=== PATIENT | male | born 1980 | race Caucasian/White ===

== ENCOUNTER 2022-06-29 08:18 | Emergency (ER) | payer BC, SELFPAY ==
--- NOTE | ~2022-06-29 | XR_ITS ---
EXAMINATION: XR abdomen/kub 1V DATE: 06/29/2022 12:40 INDICATION: Renal stone with left-sided flank pain TECHNIQUE: A supine view of the abdomen on 2 radiographs was obtained. COMPARISON: CT dated 06/29/2022 at 9:19 AM. FINDINGS: The obstructing stone in the proximal left ureter is seen projecting slightly cephalad to the left tr ansverse process of L4. The stone appears longer craniocaudal dimension than on the axial images and remeasurement of the stone on prior sagittal and coronal CT imaging yield dimensions of 5 x 4 mm. Nor mal bowel gas pattern. Bone islands at the bilateral femoral heads. IMPRESSION: 1. 5 x 4 mm stone in the proximal left ureter is clearly visible on plain radiographs. Reviewed, dictated and finalized at location A. F SUBSTATION OPERATOR IMPRESSION: 1. 5 x 4 mm stone in the proximal left ureter is clearly visible on plain radio graphs.
--- NOTE | ~2022-06-29 | CT_ITS ---
EXAMINATION: CT abdomen pelvis wo con DATE: 06/29/2022 09:30 INDICATION: Left-sided flank pain TECHNIQUE: Computed tomography (CT) of the abdomen and pelvis was performed without intravenous contr ast. Automated exposure control and iterative reconstruction technique were employed. The dose-length product was 377.53 mGy-cm. COMPARISON: 12/17/2006 FINDINGS: Mild discoid atelectasis in the left lower lobe. Heart size is normal. No pericardial or pleural effu jacy. Liver, gallbladder, spleen, pancreas and bilateral adrenal glands are normal. 1 mm stone at an upper pole calyx of the left kidney. 3 mm obstructing stone at the proximal left ureter with mild lef t hydronephrosis. Right kidney and ureter are normal with no right-sided urolithiasis. Bladder and pr ostate are normal. Bowels including the appendix are normal. No free intraperitoneal gas or fluid. No pathologically enlarged abdominal or pelvic lymphadenopathy. Bone islands at the bilateral femoral h renee. IMPRESSION: 1. Left nephrolithiasis with obstructing 3 mm proximal left ureteral stone with mild left hydronephro sis. Reviewed, dictated and finalized at location A. STANT FINANCIAL ACCOUNTANT IMPRESSION: 1. Left nephrolithiasis with obstructing 3 mm proximal left ureteral stone with mild left hydronephrosis.
[2022-06-29 08:30] VITALS: BP 179/117; PULSE 65; RESP 24; O2SAT 100
--- NOTE | 2022-06-29 08:39 | ED.MALEGU ---
HPI - Male Genitourinary General Chief complaint: Urogenital-Male Stated complaint: left flank pain Time Seen by Provider: 06/29/22 08:38 Source: patient Mode of arrival: ambulatory Limitations: no limitations History of Present Illness HPI Narrative: 41 years old white male woke up at 5:30 AM today with a severe left flank pain. Associated with nausea, vomiting, miserable. History of kidney stones. He denies any fever or chills. Related Data Allergies Allergy/AdvReac Type Severity Reaction Status Date / Time No Known Allergies Allergy Mild Verified 06/29/22 08:41 Review of Systems Review of Systems: All systems reviewed & are unremarkable except as noted in HPI and below PMFSH Past Medical History Medical History (Updated 06/29/22 @ 13:06 by Idalmis Flores MD) Left ureteral stone Exam Narrative: General appearance: Well-developed, well-nourished, in pain Skin: Pale Head: Normocephalic, nontraumatic Eyes: Clear conjunctiva ENT: Oropharynx normal, ears normal, nose normal Neck: Supple, nontender Chest and respiratory: Airway patent, no respiratory distress, no accessory muscle use Heart: Regular rate/rhythm Abdomen: Severe left flank tenderness Vascular: Normal peripheral pulses, normal capillary refill. Musculoskeletal: Normal range of motion, nontender back Neurologic: Alert and oriented ?3, AERIAL SPRAYER is normal as tested, no gross motor deficit Course Consultations Consultation #1: Dr. Flores Patient can go home, scheduled for lithotripsy Friday Date: 06/29/22 Time: 12:53 Vital Signs Vital signs: Vital Signs Pulse Rate 65 06/29/22 08:30 Respiratory Rate 24 H 06/29/22 08:30 Blood Pressure 179/117 H 06/29/22 08:30 Pulse Oximetry 100 06/29/22 08:30 Oxygen Delivery Room Air 06/29/22 08:30 Pulse Rate 65 06/29/22 08:30 Respiratory Rate 24 H 06/29/22 08:30 Blood Pressure 179/117 H 06/29/22 08:30 Pulse Oximetry 100 06/29/22 08:30 Oxygen Delivery Room Air 06/29/22 08:30 MDM - Male Genitourinary Differential Diagnosis Differential diagnosis: Likely urinary tract infection and other (Kidney stone) Lab Data Result diagrams: 06/29/22 08:34 06/29/22 08:34 Labs: Lab Results 06/29/22 06/29/22 06/29/22 Range/Units 08:34 08:34 10:37 WBC 8.6 (4.5-10.0) K/mm3 RBC 4.96 (4.6-6.20) M/mm3 Hgb 14.7 (14.0-18.0) g/dL Hct 44.0 (42.0-52.0) % MCV 88.7 (80-100) fl MCH 29.6 (26-34) pg MCHC 33.4 (32-36) g/dl RDW 12.1 (11.5-14.5) % Plt Count 320 (150-375) k/mm3 MPV 10.2 (7.4-10.4) fl Immature Gran % (Auto) 0.3 (0-0.5) % Neut % (Auto) 45.0 L (45.5-73.1) % Lymph % (Auto) 39.3 (18.3-44.2) % [place] % (Auto) 11.0 H (2.6-8.5) % Eos % (Auto) 3.7 (0-4.4) % Baso % (Auto) 0.7 (0.2-1.2) % Lymph # (Auto) 3.39 H (0.9-3.2) K/mm3 [place] # (Auto) 1.0 H (0.1-0.6) K/mm3 Eos # (Auto) 0.3 (0-0.3) K/mm3 Baso # (Auto) 0.1 (0.0-0.1) K/mm3 Abs Immat Gran (auto) 0.03 (0.00-0.031) K/mm3 Absolute Neuts (auto) 3.9 (1.3-6.7) K/mm3 Absolute Nucleated RBC 0.0 (0.0-0.012) K/mm3 Nucleated RBC % 0.0 (0.0-0.2) % Sodium 142 (137-145) mmol/L Potassium 3.8 (3.4-5.0) mmol/L Chloride 108 H (98-107) mmol/L Carbon Dioxide 23 (22-30) mmol/L Anion Gap 11 (8-16) mmol/L BUN 12 (9-20) mg/dL Creatinine 0.90 (0.7-1.3) mg/dL Estim Creat Clear Calc 132 ml/min Estimated GFR > 60 (59 - ) Glucose 117 H (65-110) mg/dL Calcium 9.2 (8.4-10.2) mg/dL Total Bilirubin 0.6 (0.2-1.3) mg/dL AST 32 (17-59) U/L ALT 35 (6-50) U/L Alkaline Phosphata
[2022-06-29] MEDS: SODIUM CHLORIDE 0.9% IV 1,000 ML 999 ML IV CONT (08:53)
[2022-06-29] MEDS: ONDANSETRON INJ 4 MG/2 ML VIAL IV PUSH (08:54)
[2022-06-29] MEDS: HYDROmorphone HCL INJ (*CRX) 1 MG/ML SYR 0.5 MG IV PUSH (08:54)
[2022-06-29 09:10] LABS: Basophils Absolute Auto 0.1 K/mm3 (0.0-0.1); Basophils Percent Auto 0.7 % (0.2-1.2); Eosinophils Absolute Auto 0.3 K/mm3 (0-0.3); Eosinophils Percent Auto 3.7 % (0-4.4); Hemoglobin 14.7 g/dL (14.0-18.0); Immature Granulocyte Absolute 0.03 K/mm3 (0.00-0.031); Immature Granulocyte Percent A 0.3 % (0-0.5); Lymphocytes Absolute Auto 3.39 K/mm3 (0.9-3.2); Lymphocytes Percent Auto 39.3 % (18.3-44.2); Mean Corpuscular HGB Conc 33.4 g/dl (32-36); Mean Corpuscular Hemoglobin 29.6 pg (26-34); Mean Corpuscular Volume 88.7 fl (80-100); Mean Platelet Volume 10.2 fl (7.4-10.4); Neutrophils Absolute Auto 3.9 K/mm3 (1.3-6.7); Platelet Count Result 320 k/mm3 (150-375); Red Blood Count 4.96 M/mm3 (4.6-6.20); Red Cell Distribution Width 12.1 % (11.5-14.5); White Blood Count 8.6 K/mm3 (4.5-10.0)
[2022-06-29 09:12] LABS: Alanine Aminotransferase 35 U/L (6-50); Albumin Level 4.5 g/dL (3.5-5.1); Alkaline Phosphatase 67 U/L (38-126); Aspartate Amino Transferase 32 U/L (17-59); Blood Urea Nitrogen 12 mg/dL (9-20)
[2022-06-29 09:13] LABS: Anion Gap 11 mmol/L (8-16); Bilirubin,Total 0.6 mg/dL (0.2-1.3); Calcium 9.2 mg/dL (8.4-10.2); Carbon Dioxide 23 mmol/L (22-30); Chloride 108 mmol/L (98-107); Estimated CRCL calculation 132 ml/min; Estimated Glomerular Filt Rate > 60; Glucose 117 mg/dL (65-110); Potassium 3.8 mmol/L (3.4-5.0); Sodium 142 mmol/L (137-145)
[2022-06-29] MEDS: HYDROmorphone HCL INJ (*CRX) 1 MG/ML SYR ×2 (09:19→09:53)
[2022-06-29] MEDS: TAMSULOSIN HCL 0.4 MG CAPSULE PO (09:54)
[2022-06-29 10:43] LABS: Appearance Urine Clear (Clear); Bilirubin Urine Negative (Negative); Blood Urine 3+ (Negative); Color Urine Yellow (Yellow); Glucose Urine UA 1+ mg/dL (Negative); Ketones Urine Trace mg/dL (Negative); Leukocyte Esterase Ur Negative LEU/UL (Negative); Nitrate Urine Negative (Negative); Protein Urine 1+ mg/dL (Negative); Urobilinogen Urine 0.2 mg/dL (<2.0)
[2022-06-29 10:49] LABS: Mucus Urine Few /lpf; RBC Urine >75 /hpf (0-2); WBC Urine 0-3 /hpf
[2022-06-29 10:51] LABS: Add Urine Microscopic? YES
--- NOTE | 2022-06-29 13:03 | WPDURCON ---
Assessment and Plan Assessment and plan (1) Left ureteral stone: Code(s): N20.1 - Calculus of ureter Status: Acute Plan 4 mm left proximal ureteral stone with associated pain. - Patient she discharged home with oral pain medication. - discussed options of observation with medical expulsive therapy, ESWL, ureteroscopy. Patient would prefer to proceed with a ESWL procedure. Risks, benefits, alternatives were discussed the patient and he would like to proceed with left ESWL this week if possible. He understands risks include but limited to infection, bleeding, pain, injury to surrounding structures, need for additional operations, inability procedure fragment stone, and anesthesia complications Urology Consult Note HPI Date Seen: 06/29/22 Requesting Physician: Dr. Joya in ER Primary Care Provider: Chapincito Taylor PA-C Consult Narrative Narrative: Shin Myers is a 41 year old male with a previous history of nephrolithiasis who presented to the ER with acute onset of left-sided pain. Associated with nausea and vomiting. He has no fevers or chills. Patient's pain is improving emergency department with IV narcotic PMFSH Past Medical History Medical History (Updated 06/29/22 @ 13:06 by Idalmis Flores MD) Left ureteral stone Meds Home Medications and Allergies Home Medications Medication Instructions Recorded Confirmed Type No Home Medications 06/29/22 06/29/22 History Allergies Allergy/AdvReac Type Severity Reaction Status Date / Time No Known Allergies Allergy Mild Verified 06/29/22 08:41 Vital Signs Vital Signs - 24 hr 06/29/22 08:30 Pulse Rate 65 Respiratory Rate 24 H Blood Pressure 179/117 H Pulse Oximetry 100 Oxygen Delivery Room Air Exam Narrative: patient is awake alert, no acute distress, breathing nonlabored. Abdomen soft nontender nondistended. No CVA tenderness Results Labs CBC & Chem 7: 06/29/22 08:34 06/29/22 08:34 Labs: Short CBC 06/29/22 Range/Units 08:34 WBC 8.6 (4.5-10.0) K/mm3 Hgb 14.7 (14.0-18.0) g/dL Hct 44.0 (42.0-52.0) % Plt Count 320 (150-375) k/mm3 BMP 06/29/22 08:34 Sodium 142 Potassium 3.8 Chloride 108 H Carbon Dioxide 23 BUN 12 Creatinine 0.90 Glucose 117 H Calcium 9.2 Liver Function 06/29/22 Range/Units 08:34 Total Bilirubin 0.6 (0.2-1.3) mg/dL AST 32 (17-59) U/L ALT 35 (6-50) U/L Alkaline Phosphatase 67 (38-126) U/L Albumin 4.5 (3.5-5.1) g/dL Urine 06/29/22 Range/Units 10:37 Urine Color Yellow (Yellow) Urine Appearance Clear (Clear) Urine pH 6.0 (5.0-9.0) Ur Specific [place] 1.020 (1.001-1.035) Urine Protein 1+ H (Negative) mg/dL Urine Glucose (UA) 1+ H (Negative) mg/dL Imaging My impression: CT and KUB reviewed. Appears to have 4mm proximal ureteral stone that is visible on KUB Radiologist's impression: IMPRESSION: 1. Left nephrolithiasis with obstructing 3 mm proximal left ureteral stone with mild left hydronephrosis. Reviewed, dictated and finalized at location A. ISTRY TECHNICAL OFFICER Dictated By:? Santosh Blanco MD? 06/29/22 0944 Signed By:? ? <Electronically signed by? Santosh Blanco MD in [place]>
[2022-06-29 13:39] VITALS: BP 144/96; PULSE 63; RESP 16; O2SAT 97
== END 2022-06-29 13:40 | disposition home or self-care (01) ==
PROVIDERS: Emergency Provider Emergency Medicine; PCP Physician Assistant
DX: N13.2 Hydronephrosis with renal and ureteral calculous obstruction (principal); Z87.442 Personal history of urinary calculi
CPT/HCPCS: 36415; 74018; 74176; 80053; 81001; 85025; 96361; 96374; 96375; 96376; 99284; A9270; J1170; J2405; J7030

== ENCOUNTER 2022-07-03 12:09 | Outpatient (CLI) | payer BC, SELFPAY ==
--- NOTE | ~2022-07-03 | XR_ITS ---
XR abdomen/kub 1V 07/03/2022 12:21 Indication: Left ureteral stone Procedure: KUB Comparison: 06/29/2022 Findings: There is a 3 mm stone in the left ureter at the L3-4 level. Bowel gas pattern nonobstructiv e. No definite nephrolithiasis. No acute osseous abnormality. Impression: 1: Proximal left ureteral stone at the L3-4 level measuring approximately 3 mm. No significant change to position allowing for technique. Reviewed, dictated and finalized at location B. FORM MATERIAL HANDLING SUPERVISOR Impression: 1: Proximal left ureteral stone at the L3-4 level measuring approximately 3 mm. No significant change to position allowing for technique.
== END 2022-07-03 12:10 | disposition home or self-care (01) ==
LOC: ANHIMG 12:11
PROVIDERS: Visit Provider Urology
DX: N20.1 Calculus of ureter (principal)
CPT/HCPCS: 74018

== ENCOUNTER 2022-07-10 08:53 | Outpatient (CLI) | payer BC, SELFPAY ==
--- NOTE | ~2022-07-10 | XR_ITS ---
XR abdomen/kub 1V 07/10/2022 09:14 Indication: Ureteral stone Procedure: KUB Comparison: Comparison to multiple prior studies sequentially, with oldest reviewed study dated 04/2007. Findings: There is a proximal left ureteral stone measuring 4 mm at the L3-4 level. Pattern nonobstructive. No acute osseous abnormality. There is small bone island in the right femoral head. Impression: 1: Left proximal ureteral stone at the L3-4 level measuring 4 mm. Reviewed, dictated and finalized at location A. TOLOGY SUPERVISOR Impression: 1: Left proximal ureteral stone at the L3-4 level measuring 4 mm.
== END 2022-07-10 08:54 | disposition home or self-care (01) ==
LOC: ANHIMG 08:53
PROVIDERS: Visit Provider Urology
DX: N20.1 Calculus of ureter (principal)
CPT/HCPCS: 74018

== ENCOUNTER 2022-07-23 12:30 | Outpatient (CLI) | payer BC, SELFPAY ==
--- NOTE | ~2022-07-23 | XR_ITS ---
Supine views of the abdomen Clinical history: Left ureteral stone COMPARISON: 07/10/2022 Findings: Bowel gas pattern is nonspecific. No evidence for obstruction or free air. No abnormal mass lesion or calcification is seen. Osseous structures are intact. Impression: No significant abnormality is seen. Previously noted left ureteral stone no longer visualized. Reviewed, dictated and finalized at location [] ATCHER MAINTENANCE SERVICE Impression: No significant abnormality is seen. Previously noted left ureteral stone no amber shakeel visualized.
== END 2022-07-23 12:31 | disposition home or self-care (01) ==
PROVIDERS: Visit Provider Urology
DX: N20.1 Calculus of ureter (principal)
CPT/HCPCS: 74018